=== PATIENT | male | born 1980 | race Two or more races ===

== ENCOUNTER → 2024-10-16 | Outpatient (CLI) | payer BC, SELFPAY ==
[2024-10-16 10:53] LABS: Glucose Estimated Average 237 mg/dL (80-131); Hemoglobin A1C 9.9 % Hgb (4.8-6.0)
== END | disposition home or self-care (01) ==
PROVIDERS: PCP Family Medicine; Referring Provider Physician Assistant; Visit Provider Physician Assistant
DX: E11.9 Type 2 diabetes mellitus without complications (principal)
CPT/HCPCS: 36415; 83036

== ENCOUNTER 2025-01-19 13:02 | Emergency (ER) | payer OTHER, SELFPAY ==
[2025-01-19 13:03] VITALS: BMI 40.6
[2025-01-19 14:00] VITALS: BP 143/88; PULSE 99; RESP 18; TEMP 36.8; O2SAT 95
--- NOTE | 2025-01-19 15:20 | PD.EDADULT ---
ED General RME/HPI General Chief complaint: Back Pain/Injury Stated complaint: BACK PAIN , WORK INJURY YESTERDAY Time Seen by Provider: 01/19/25 15:03 Arrival date/time: 01/19/25 13:02 RME / HPI RME / HPI narrative: 44-year-old male was bending over while at work and using one of the machines and subsequently felt some pain on his back which is worse with movement. Denies any numbness, tingling, weakness, incontinence, fever, nausea, vomiting. Related Data Allergies Allergy/AdvReac Type Severity Reaction Status Date / Time No Known Allergies Allergy Verified 01/19/25 13:04 ED Exam Narrative Physical exam: Constitutional: Patient alert and oriented. Well appearing. No acute distress. Not toxic appearing. Head: Normocephalic, atraumatic. Eyes: Conjunctiva clear bilaterally. Mouth/Throat: Mucous membranes moist. No stridor or muffled voice. Handling secretions without difficulty. Neck: Supple. Trachea midline. No JVD. No nuchal rigidity. No midline tenderness or step-offs. Normal range of motion. Respiratory: Normal effort. No accessory muscle use or respiratory distress. Abdomen: Soft. Non-distended. Non-tender throughout. No pulsatile mass. No guarding or rebound. Back: No midline tenderness or step-offs. No CVA tenderness bilaterally. Positive left paralumbar tenderness to palpation. Upper Extremities: No gross deformities. No focal motor deficits bilaterally. Lower Extremities: Heel-toe gait intact without difficult. No gross deformities. No edema or calf tenderness. No focal motor or sensory deficits bilaterally. Neuro: Speech normal. CN II?XII grossly intact. GCS 15. Skin: Warm, dry, normal color. Psych: Normal affect. Cooperative. Normal insight. Course Quality Measures none Orders Category Date Time Status XR lumbar spine 2-3V Stat Exams 01/19/25 15:24 Completed Acetaminophen Ivpb [Ofirmev Inj] Med 01/19/25 15:04 Discontinued 1,000 mg in 100 ml IV X1 Diazepam [Valium] Med 01/19/25 15:41 Discontinued 5 mg PO X1 ONE DiphenhydrAMINE INJ [Benadryl Inj] Med 01/19/25 15:04 Discontinued 50 mg IVP X1 STA Ketorolac Inj [Toradol Inj] Med 01/19/25 15:41 Discontinued 60 mg IM X1 ONE MethylPREDNISolone.* [SoluMEDROL Inj] Med 01/19/25 15:04 Discontinued 125 mg IVP X1 ONE Reevaluation(s) Reevaluation #1: At the time of reassessment, the patient remains alert and oriented ?3 with GCS 15. Vitals are normal, pain is controlled, and the patient is tolerating oral intake without nausea or vomiting. The patient is agreeable to discharge and verbalizes understanding of the diagnosis, studies, treatment plan, medications (including side effects/precautions), and strict ER return precautions as discussed in the ED. All concerns were addressed, and the patient is comfortable with the plan. Time: 16:58 Vital Signs Vital signs: Vital Signs Temperature 98.3 F 01/19/25 14:00 Pulse Rate 99 01/19/25 14:00 Respiratory Rate 18 01/19/25 14:00 Blood Pressure 143/88 H 01/19/25 14:00 Pulse Oximetry (%) 95 01/19/25 14:00 Oxygen Delivery Method Room Air 01/19/25 14:00 Discharge Plan Plan Patient Disposition: HOME (Self Care) Patient condition on transfer: Stable Prescriptions/Referrals Referrals: No Primary/Family,Physician [Primary Care Provider] - In 1 week Problem List Clinical Impression: Strain of lumbar region Patient/Caregiver Discharge Instructions Education Materials: ED Back Pain (Acute or Chronic) Additional Instructions: Follow up with your primary medical doctor within 24 hours. Return to the Emergency Room immediately for any new, worsening, continuing symptoms or any concerns at all. Return to the Emergency Room within 24 hours if you are unable to follow up with your primary medical doctor within 24 hours. Print Language: Sinhala Stand Alone Forms: Campaign Monitor Award Info., Patient Portal Info Letter PA/[employer] Supervising Physician PA/[employer] Supervising Physician: Dr. Felix MDM Narrative MDM hospital course (for use when minimal MDM required): MDM: Musculoskeletal Low Back Pain This patient presents with acute low back pain most consistent with musculoskeletal strain or spasm. Pain is localized without radiation, paresthesia, or weakness. No bowel or bladder incontinence.No acute neurologic deficits. X-ray notable for DJD without acute fracture or subluxation Doubt cauda equina syndrome, spinal cord compression, infection, trauma, malignancy, dissection, or nephrolithiasis based on history, exam, and absence of red flag symptoms. Doubt renal colic, pyelonephritis, or obstructive uropathy?pain localized to lower back without flank radiation or CVA tenderness. Advanced imaging (CT/MRI) considered but not indicated given absence of neurologic deficits or high-risk features. Plan: Symptomatic management with analgesics, stretching, and activity as tolerated. Discussed medication precautions and return precautions for worsening pain, fever, new weakness, numbness, or bowel/bladder changes. Advised follow-up with Worker's Comp. within 1?2 days for reassessment. Medication Administration(s) Medication Administration History Discontinued Medications Diazepam (Diazepam 5 Mg Tablet) 5 mg PO X1 ONE Stop: 01/19/25 15:42 Last Admin: 01/19/25 16:19 Dose: 5 mg Documented By: Diphenhydramine HCl (Diphenhydramine Inj 50 Mg/Ml Vial) 50 mg IVP X1 STA Stop: 01/19/25 15:05 Last Admin: 01/19/25 16:15 Dose: Not Given Documented By: Non-Admin Reason: Cancelled by Provider Acetaminophen (Ofirmev Inj) 1,000 mg in 100 mls @ 250 mls/hr IV X1 ONE Stop: 01/19/25 15:27 Last Admin: 01/19/25 16:15 Dose: Not Given Documented By: Non-Admin Reason: Cancelled by Provider Ketorolac Tromethamine (Ketorolac Inj 60 Mg/2 Ml Vial) 60 mg IM X1 ONE Stop: 01/19/25 15:42 Last Admin: 01/19/25 16:21 Dose: 60 mg Documented By: Methylprednisolone Sodium Succinate (Methylprednisolone Sod Succ 62.5 Mg/Ml 2ml Vial) 125 mg IVP X1 ONE Stop: 01/19/25 15:05 Last Admin: 01/19/25 16:15 Dose: Not Given Documented By: Non-Admin Reason: Cancelled by Provider
--- NOTE | 2025-01-19 15:24 | XR_ITS ---
EXAMINATION: Lumbar spine 3 views TECHNIQUE: AP lateral: Lateral lower lumbar spine 3 views Date and time: January 19, 2025, 1531 hours INDICATIONS: Lower back pain beginning 2 days ago. FINDINGS: Satisfactory alignment lumbar vertebral bodies No lumbar fracture. Moderate disc narrowing at the lower 3 lumbar levels Mild lumbar spondylosis No spondylolisthesis IMPRESSION: No lumbar fracture Moderate degenerative disc disease at the lower 3 lumbar levels
[2025-01-19] MEDS: DIAZEPAM 5 MG TABLET PO (16:19)
[2025-01-19] MEDS: KETOROLAC INJ 60 MG/2 ML VIAL IM (16:21)
[2025-01-19 16:56] VITALS: BP 136/91; PULSE 95; RESP 16; TEMP 36.7; O2SAT 95
== END 2025-01-19 18:06 | disposition home or self-care (01) ==
PROVIDERS: Emergency Provider Emergency Medicine
DX: S39.012A Strain of muscle, fascia and tendon of lower back, initial encounter (principal); X50.1XXA Overexertion from prolonged static or awkward postures, initial encounter; Y99.0 Civilian activity done for income or pay
CPT/HCPCS: 72100; 96372; 99283; J1885; A9270